=== PATIENT | male | born 1995 | race Caucasian/White ===

== ENCOUNTER 2018-10-14 23:44 | Emergency (ER) | payer OTHER, MEDICAID ==
[2018-10-15] MEDS: IBUPROFEN 800 MG TAB PO (01:06)
== END 2018-10-15 01:10 | disposition home or self-care (01) ==
LOC: FTE 23:44
DX: H66.002 Acute suppurative otitis media without spontaneous rupture of ear drum, left ear (principal); F17.210 Nicotine dependence, cigarettes, uncomplicated; J45.909 Unspecified asthma, uncomplicated
CPT/HCPCS: 99283; Z7502